=== PATIENT | female | born 1965 | race Caucasian/White ===

== ENCOUNTER 2018-09-15 12:02 | Emergency (ER) | payer SELFPAY ==
[~2018-09-15] VITALS: Ht 152.4 cm; Wt 74.8 kg
[2018-09-15] MEDS ORDERED: SODIUM CHLORIDE 0.9% 1000ML 1,000 ML IV STA (12:21)
[2018-09-15] MEDS ORDERED: MECLIZINE HCL 12.5 MG TAB PO ONE (12:30)
[2018-09-15 12:31] LABS: BASOPHILS % 0.3 % (0.0-1.0); EOSINOPHILS # (AUTO) 0.1 (0.0-0.4); EOSINOPHILS % 0.6 % (0.0-6.0); HEMATOCRIT 39.6 % (34.2-44.1); HEMOGLOBIN 14.4 g/dL (12.0-16.0); LYMPHOCYTES # (AUTO) 0.9 (1.0-3.2); MEAN CORPUSCULAR HEMOGLOBIN 30.2 pg (28-32); MEAN CORPUSCULAR HGB CONC 36.4 g/dL (31-35); MONOCYTES # (AUTO) 0.4 (0.2-0.8); MONOCYTES % 3.6 % (4.4-11.3); NEUTROPHILS % 85.7 % (38.7-80.0); PLATELET COUNT 293 x10e3/uL (140-360); RED BLOOD COUNT 4.77 x10e6/uL (3.6-5.1); RED CELL DISTRIBUTION WIDTH 12.2 % (11.7-14.4)
[2018-09-15 12:35] LABS: INR 0.95; PROTHROMBIN TIME 13.6 seconds (11.9-14.5)
[2018-09-15 12:36] LABS: PARTIAL THROMBOPLASTIN TIME 22.9 seconds (23.8-35.5)
[2018-09-15 12:43] LABS: ALANINE AMINOTRANSFERASE 24 IU/L (0-55); ALBUMIN/GLOBULIN RATIO 1.4 (0.8-2.0); ALKALINE PHOSPHATASE 95 IU/L (40-150); ANION GAP 17.6 mmol/L (8-16); BLOOD UREA NITROGEN 16 mg/dL (7-26); BUN/CREATININE RATIO 15 (6-25); CALCIUM 9.6 mg/dL (8.4-10.2); CARBON DIOXIDE 18 mmol/L (22-29); CHLORIDE 108 mmol/L (98-107); CREATINE KINASE 69 IU/L (29-168); CREATININE, SERUM 1.08 mg/dL (0.57-1.11); EST GLOMERULAR FILTRATION RATE 53 ML/MIN (60-); GLUCOSE 170 mg/dL (74-118); POTASSIUM 3.6 mmol/L (3.5-5.1); SODIUM 140 mmol/L (136-145)
[2018-09-15 12:49] LABS: SALICYLATE < 5.0 mg/dL (0-30)
[2018-09-15 13:02] LABS: THYROID STIMULATING HORMONE 0.689 uIU/mL (0.350-4.940)
--- NOTE | 2018-09-15 13:02 | Diagnostic Imaging Report ---
EXAM: XR CHEST 1 VIEW DATE: 09/15/2018 12:21 PM INDICATION: Pain COMPARISON: None FINDINGS: Lines and Tubes: None Heart and Mediastinum: No acute cardiomediastinal findings. Lungs and Pleura: No significant pleural effusion, pneumothorax, or focal consolidation. Bones and Soft Tissues: No acute findings. IMPRESSION: 1. No acute cardiopulmonary findings. Signed by: Dr. Domenic Wong MD on 09/15/2018 12:59 PM
--- NOTE | 2018-09-15 13:09 | Diagnostic Imaging Report ---
ADDENDUM #1 The preliminary report was reviewed and a final report issued by Dr. Maurice neuroradiologist on 09/15/2018 at 3:42 PM. Signed by: Dr. Lorri Maurice M.D. on 09/15/2018 3:43 PM ORIGINAL REPORT Exam: Noncontrast head CT History:Dizziness, nausea vomiting, cough, weakness over 2 months Comparison studies: None Technique: Axial images were obtained from the skull base to the vertex. Coronal and sagittal images reconstructed from the axial data. Dose modulation, iterative reconstruction, and/or weight based adjustment of the mA/kV was utilized to reduce the radiation dose to as low as reasonably achievable. Intravenous contrast: None Findings: Scalp/skull: No abnormalities. Extra-axial spaces: No masses. No fluid collections. Brain sulci/ventricles: Normal in size and position. No hydrocephalus. Parenchyma: No masses, hemorrhage, acute or chronic cortical vascular insults. Sellar/suprasellar region: No abnormalities. Craniocervical junction: Patent foramen magnum. No Chiari one malformation. Incidental findings: Minimal atherosclerotic calcifications in the carotid siphons . Impression: No acute abnormalities. This is a preliminary report was provided by the neuroradiology fellow, Dr. Branden Torres. Attending over read to follow. Signed by: Branden Torres MD on 09/15/2018 1:09 PM
--- NOTE | 2018-09-15 13:35 | NUR ---
Patient daughter provided contact information [facility]- [phone] - [phone]
[2018-09-15] MEDS ORDERED: METOCLOPRAMIDE HCL 10 MG/2ML VIAL IV ONE (14:00)
[2018-09-15 14:40] LABS: CLARITY,URINE HAZY (CLEAR); COLOR,URINE YELLOW (YELLOW); LEUKOCYTE ESTERASE ,URINE NEGATIVE (NEGATIVE)
[2018-09-15 14:41] LABS: AMPHETAMINES SCREEN,URINE NEGATIVE (NEGATIVE); BACTERIA,URINE MANY /HPF; BENZODIAZEPINES SCREEN,URINE NEGATIVE (NEGATIVE); BILIRUBIN,URINE NEGATIVE (NEGATIVE); EPITHELIAL CELLS,URINE MODERATE /LPF; KETONES,URINE NEGATIVE (NEGATIVE); NITRITE,URINE POSITIVE (NEGATIVE); PHENCYCLIDINE SCREEN,URINE NEGATIVE (NEGATIVE); PROTEIN,URINE DIPSTICK NEGATIVE (NEGATIVE); URINE UROBILINOGEN 0.2 mg/dL (0.2 - 1); WBC,URINE (MAN) 0-5 /HPF (0-5)
[2018-09-15 14:42] LABS: PREGNANCY TEST, URINE NEGATIVE (NEGATIVE)
--- NOTE | 2018-09-15 14:48 | NUR ---
pt states she feels good and is good to go
[2018-09-15 14:54] VITALS: BP 120/79
--- NOTE | 2018-09-15 14:56 | NUR ---
FAMILY ASKED IF IT WAS OK FOR PT TO DRIVE SELF HOME AND NURSE ADVISED AGAINST IT EXPLAINING THAT HER SYMPTOMS AND WHAT SHE C/O ON ARRIVAL IT WOULD BE BEST IF FAMILY DROVE PT HOME; FAMILY AGAIN ASKS IF IT WOULD BE OK STATING PT WANTS TO DRIVE TO [facility] AND THAT SHE DOESN'T LISTEN AND WAS AGAIN ADVISED AGAINST IT; JOSUE SPRAGUE NOTIFIED
== END 2018-09-15 15:07 | disposition home or self-care (01) ==
LOC: ER 12:02
DX: R42 Dizziness and giddiness (principal); R11.2 Nausea with vomiting, unspecified; R19.7 Diarrhea, unspecified; H81.399 Other peripheral vertigo, unspecified ear
CPT/HCPCS: 36415; 70450; 71045; 80053; 80307; 80320; 80329; 81001; 81025; 82550; 82553; 84443; 84484; 85025; 85610; 85730; 87086; 87186; 93005; 99284; J2765; J7030; J8597